=== PATIENT | female | born 1960 | race Caucasian/White ===

== ENCOUNTER 2020-05-03 06:23 | Day surgery (SDC) | payer MEDICARE, MEDICAID ==
[~2020-05-03] VITALS: Ht 156.2 cm; Wt 45.5 kg
[~2020-05-03 06:23] MED LIST: ALBU8.5H8 IH; AMYL1CAP56 PO; BUTA-281 PO; CETI10TA14 PO; CYCL-394 PO; DIGO125T PO; DOCU-28 PO; DULO60CA45 PO; EST1T PO; FAMO40TA7 PO; FLUT100D2 INH; FURO-150 PO; HYDR-4353 PO; LEVO175T7 PO; MEDR2.5T PO; ONDA4TAB12 PO; POTA10CA44 PO; PRAV40TA3 PO; PRED20TA PO; VERA180T PO; VOLTAREN 1% GEL TOP
[2020-05-03 06:28] VITALS: BP 156/90
[2020-05-03] MEDS ORDERED: PANT-47 PO (06:41)
[2020-05-03] MEDS ORDERED: NEBI2.5T3 PO (06:42)
[2020-05-03] MEDS ORDERED: ALLO100T25 PO (06:43)
[2020-05-03] MEDS ORDERED: BUDE10.2 INH (06:45)
[2020-05-03] MEDS ORDERED: DIPH25CA53 PO (06:46)
[2020-05-03] MEDS ORDERED: DOCU-148 PO (06:47)
[2020-05-03] MEDS ORDERED: HYDR12.55 PO (06:49)
[2020-05-03] MEDS ORDERED: TIOT18CA3 (06:51)
[2020-05-03] MEDS ORDERED: VERA240T12 PO (06:52)
[2020-05-03] MEDS ORDERED: fentaNYL/PF 50MCG/1 ML 2ML syringe ONE (06:52)
[2020-05-03] MEDS ORDERED: LIDOcaine Viscous 15ml cup ONE (06:53)
[2020-05-03] MEDS ORDERED: diphenhydrAMINE 50 mg/ml inj ONE (06:53)
[2020-05-03] MEDS ORDERED: MIDAZolam 5mg/5ml vial ONE (06:53)
[2020-05-03 08:00] VITALS: BP 113/69
[2020-05-03 08:10] VITALS: BP 124/63
[2020-05-03 08:20] VITALS: BP 99/79
[2020-05-03 08:30] VITALS: BP 140/65
== END 2020-05-03 08:50 | disposition home or self-care (01) ==
LOC: GI LAB 06:23
PROVIDERS: ATTEND Internal Medicine Gastroenterology
DX: Z12.11 Encounter for screening for malignant neoplasm of colon (principal); R10.13 Epigastric pain; Z86.010 Personal history of colon polyps; K57.30 Diverticulosis of large intestine without perforation or abscess without bleeding; K63.89 Other specified diseases of intestine; K29.50 Unspecified chronic gastritis without bleeding; K20.0 Eosinophilic esophagitis; K31.89 Other diseases of stomach and duodenum; K44.9 Diaphragmatic hernia without obstruction or gangrene
CPT/HCPCS: 43239; 99153; G0105; G0500; J1200; J2250; J3010; J7040; 45378; 88305; 88312; 99152; A4620